=== PATIENT | female | born 1945 | race Caucasian/White ===

== ENCOUNTER 2023-11-04 07:04 | Emergency (ER) | payer MEDICARE, OTHER ==
[2023-11-04 08:15] VITALS: BP 151/79; PULSE 76
== END 2023-11-04 09:11 | disposition home or self-care (01) ==
LOC: DL.ED 07:04
DX: S22.42XA Multiple fractures of ribs, left side, initial encounter for closed fracture (principal); Z79.899 Other long term (current) drug therapy; Z91.048 Other nonmedicinal substance allergy status; X50.9XXA Other and unspecified overexertion or strenuous movements or postures, initial encounter
CPT/HCPCS: 71101-LT; 94010; 99284